=== PATIENT | male | born 1970 | race Caucasian/White ===

== ENCOUNTER 2017-11-04 12:43 | Inpatient (IN) | payer BC ==
[2017-11-04] MEDS ORDERED: HYDROmorphONE 2 MG/ML SYG IM (13:01)
[2017-11-04] MEDS: HYDROmorphONE 0.5 MG/0.5 ML SYG IV ×2 (13:23→15:10)
[2017-11-04] MEDS: HYDROmorphONE 0.5 MG/0.5 ML SYG IM (13:23)
[2017-11-04 13:39] LABS: ADD MAN DIFF? NO
[2017-11-04 13:42] LABS: BASOPHILS % 0.2 % (0.0-2.0); EOSINOPHILS % 0.2 % (0.0-7.0); HEMATOCRIT 39.6 % (42.0-52.0); HEMOGLOBIN 13.6 g/dl (14.0-18.0); LYMPHOCYTES # 1.5 10^3/ul (0.8-2.9); LYMPHOCYTES % 10.5 % (15.0-51.0); MEAN CORPUSCULAR HEMOGLOBIN 28.1 pg (29.0-33.0); MEAN CORPUSCULAR HGB CONC 34.3 g/dl (32.0-37.0); MEAN CORPUSCULAR VOLUME 81.8 fl (82.0-101.0); MEAN PLATELET VOLUME 10.2 fl (7.4-10.4); MONOCYTES % 7.3 % (0.0-11.0); NEUTROPHIL # 11.5 10^3/ul (1.6-7.5); NEUTROPHILS % 81.3 % (39.0-77.0); PLATELET COUNT 449 10^3/UL (140-415); RED BLOOD COUNT 4.84 10^6/ul (4.70-6.10); RED CELL DISTRIBUTION WIDTH 12.2 % (11.5-14.5)
[2017-11-04 13:42] LABS: WHITE BLOOD COUNT 14.1 10^3/ul (4.8-10.8)
[2017-11-04 14:10] LABS: ANION GAP 16 (8-16); BLOOD UREA NITROGEN 18 mg/dl (7-20); CALCIUM 9.4 mg/dl (8.4-10.2); CARBON DIOXIDE 25 mmol/L (21-31); CHLORIDE 102 mmol/L (97-110); CREATININE 0.64 mg/dl (0.61-1.24); GLUCOSE 104 mg/dl (70-220); POTASSIUM 3.9 mmol/L (3.5-5.1); SODIUM 139 mmol/L (135-144)
[2017-11-04] MEDS ORDERED: ONDANSETRON 4 MG INJ IV (18:00)
[2017-11-04] MEDS ORDERED: HYDROmorphONE 0.5 MG/0.5 ML SYG IV (18:00)
[2017-11-04] MEDS ORDERED: ACETAMINOPHEN 325 MG TAB PO (18:00)
[2017-11-04] MEDS: metFORMIN 500 MG TAB PO (18:31)
[2017-11-04] MEDS: HYDROmorphONE 1 MG/ML SYG IV ×2 (18:32→22:43)
[2017-11-04] MEDS: NICOTINE (21 MG/24 HR) PATCH TRANSDERM (18:48)
[2017-11-04] MEDS: INSULIN ASPART [NOVOLOG] 3 ML PEN SC ×2 (18:49→20:22)
[2017-11-04] MEDS: FAMOTIDINE 20 MG TAB PO (20:12)
[2017-11-04] MEDS: INSULIN GLARGINE [LANtus] 3 ML PEN SC (20:21)
[2017-11-05] MEDS: ACCU-CHEK XX (02:14)
[2017-11-05] MEDS: HYDROmorphONE 1 MG/ML SYG IV ×5 (02:58→22:27)
[2017-11-05 05:14] LABS: ADD MAN DIFF? NO
[2017-11-05 05:27] LABS: BASOPHILS % 0.3 % (0.0-2.0); EOSINOPHILS # 0.1 10^3/ul (0.0-0.5); EOSINOPHILS % 1.3 % (0.0-7.0); HEMATOCRIT 38.2 % (42.0-52.0); HEMOGLOBIN 13.2 g/dl (14.0-18.0); LYMPHOCYTES # 3.3 10^3/ul (0.8-2.9); LYMPHOCYTES % 33.6 % (15.0-51.0); MEAN CORPUSCULAR HEMOGLOBIN 27.7 pg (29.0-33.0); MEAN CORPUSCULAR HGB CONC 34.6 g/dl (32.0-37.0); MEAN CORPUSCULAR VOLUME 80.3 fl (82.0-101.0); MEAN PLATELET VOLUME 10.2 fl (7.4-10.4); MONOCYTE # 0.8 10^3/ul (0.3-0.9); MONOCYTES % 7.7 % (0.0-11.0); NEUTROPHIL # 5.6 10^3/ul (1.6-7.5); NEUTROPHILS % 56.8 % (39.0-77.0); PLATELET COUNT 442 10^3/UL (140-415); RED BLOOD COUNT 4.76 10^6/ul (4.70-6.10); RED CELL DISTRIBUTION WIDTH 12.6 % (11.5-14.5)
[2017-11-05 05:27] LABS: WHITE BLOOD COUNT 9.9 10^3/ul (4.8-10.8)
[2017-11-05 05:37] LABS: ALANINE AMINOTRANSFERASE 30 IU/L (13-69); ALBUMIN/GLOBULIN RATIO 1.66; ALKALINE PHOSPHATASE 53 IU/L (42-121); ANION GAP 16 (8-16); ASPARTATE AMINO TRANSFERASE 11 IU/L (15-46); BILIRUBIN,INDIRECT 0.2 mg/dl (0-1.1); BILIRUBIN,TOTAL 0.2 mg/dl (0.2-1.3); BLOOD UREA NITROGEN 16 mg/dl (7-20); CALCIUM 9.1 mg/dl (8.4-10.2); CARBON DIOXIDE 27 mmol/L (21-31); CHLORIDE 99 mmol/L (97-110); CREATININE 0.52 mg/dl (0.61-1.24); GLUCOSE 232 mg/dl (70-220); POTASSIUM 3.8 mmol/L (3.5-5.1); SODIUM 138 mmol/L (135-144); TOTAL PROTEIN 6.4 g/dl (6.1-8.1)
[2017-11-05 07:16] LABS: HEMOGLOBIN A1C 12.3 % (0-5.9)
[2017-11-05] MEDS: FAMOTIDINE 20 MG TAB PO ×2 (08:28→20:32)
[2017-11-05] MEDS: metFORMIN 500 MG TAB PO ×3 (08:28→18:43)
[2017-11-05] MEDS: ASPIRIN 81 MG TAB PO (08:28)
[2017-11-05] MEDS: NICOTINE (21 MG/24 HR) PATCH TRANSDERM (08:29)
[2017-11-05] MEDS: INSULIN ASPART [NOVOLOG] 3 ML PEN SC ×5 (08:37→21:00)
[2017-11-05] MEDS ORDERED: GLIMEPIRIDE 2 MG TAB PO (09:00)
[2017-11-05] MEDS ORDERED: GLUCOSE GEL 15 GRAM TUBE BUCCAL (13:00)
[2017-11-05] MEDS ORDERED: GLUCAGON 1 MG INJ IM (13:00)
[2017-11-05] MEDS ORDERED: GLUCOSE GEL 15 GRAM TUBE PO ×2 (13:00)
[2017-11-05] MEDS ORDERED: DEXTROSE 50% 50 ML SYRINGE IV ×2 (13:00)
[2017-11-05] MEDS: LINAGLIPTIN 5 MG TABLET PO (15:30)
[2017-11-05] MEDS: INSULIN GLARGINE [LANtus] 3 ML PEN SC (20:37)
[2017-11-05] MEDS: OXYCODONE/ACETAMINOPHEN (5/325) TAB PO (22:00)
[2017-11-06] MEDS: ACCU-CHEK XX (02:00)
[2017-11-06] MEDS: HYDROmorphONE 1 MG/ML SYG IV ×4 (02:32→15:09)
[2017-11-06 05:25] LABS: ADD MAN DIFF? NO
[2017-11-06 05:36] LABS: BASOPHIL # 0.1 10^3/ul (0.0-0.1); BASOPHILS % 0.5 % (0.0-2.0); EOSINOPHILS # 0.1 10^3/ul (0.0-0.5); EOSINOPHILS % 1.2 % (0.0-7.0); HEMATOCRIT 40.5 % (42.0-52.0); HEMOGLOBIN 13.6 g/dl (14.0-18.0); LYMPHOCYTES % 30.8 % (15.0-51.0); MEAN CORPUSCULAR HEMOGLOBIN 27.5 pg (29.0-33.0); MEAN CORPUSCULAR HGB CONC 33.6 g/dl (32.0-37.0); MEAN PLATELET VOLUME 10.2 fl (7.4-10.4); MONOCYTE # 0.7 10^3/ul (0.3-0.9); MONOCYTES % 7.1 % (0.0-11.0); NEUTROPHIL # 5.8 10^3/ul (1.6-7.5); NEUTROPHILS % 60.1 % (39.0-77.0); PLATELET COUNT 445 10^3/UL (140-415); RED BLOOD COUNT 4.94 10^6/ul (4.70-6.10); RED CELL DISTRIBUTION WIDTH 12.7 % (11.5-14.5)
[2017-11-06 05:36] LABS: WHITE BLOOD COUNT 9.7 10^3/ul (4.8-10.8)
[2017-11-06 06:59] LABS: ANION GAP 15 (8-16); BLOOD UREA NITROGEN 19 mg/dl (7-20); CALCIUM 9.4 mg/dl (8.4-10.2); CARBON DIOXIDE 30 mmol/L (21-31); CHLORIDE 99 mmol/L (97-110); CREATININE 0.66 mg/dl (0.61-1.24); GLUCOSE 122 mg/dl (70-220); POTASSIUM 4.4 mmol/L (3.5-5.1); SODIUM 140 mmol/L (135-144)
[2017-11-06] MEDS: metFORMIN 500 MG TAB PO ×2 (07:47→18:55)
[2017-11-06] MEDS: EMPAGLIFLOZIN 10 MG TABLET PO (07:47)
[2017-11-06] MEDS: INSULIN ASPART [NOVOLOG] 3 ML PEN SC ×7 (07:48→21:00)
[2017-11-06] MEDS: NICOTINE (21 MG/24 HR) PATCH TRANSDERM (08:38)
[2017-11-06] MEDS: LINAGLIPTIN 5 MG TABLET PO (08:38)
[2017-11-06] MEDS: FAMOTIDINE 20 MG TAB PO (08:38)
[2017-11-06] MEDS: ASPIRIN 81 MG TAB PO (08:38)
[2017-11-06] MEDS: OXYCODONE/ACETAMINOPHEN (5/325) TAB PO (08:44)
[2017-11-06] MEDS: D5W-0.45 NACL + KCL 20 MEQ 1,000 ML IV (14:04)
[2017-11-06] MEDS ORDERED: ONDANSETRON 4 MG INJ (18:58)
[2017-11-06] MEDS ORDERED: PROPOFOL 20 ML (18:58)
[2017-11-06] MEDS ORDERED: MIDAZOLAM 1 MG/ML 2 ML INJ (18:58)
[2017-11-06] MEDS ORDERED: ROPIVACAINE 0.5 % 30 ML VIAL (18:58)
[2017-11-06] MEDS ORDERED: ROCURONIUM 50 MG INJ ×3 (18:58→20:40)
[2017-11-06] MEDS ORDERED: METOCLOPRAMIDE 10 MG INJ (19:01)
[2017-11-06] MEDS: GELATIN SIZE 100 SPONGE (19:06)
[2017-11-06] MEDS: CEFAZOLIN 1 GM INJ (19:06)
[2017-11-06] MEDS: THROMBIN 5000 UNIT VIAL (19:06)
[2017-11-06] MEDS: HEPARIN 1000 UNITS/ML 10 ML INJ (19:06)
[2017-11-06] MEDS ORDERED: HYDROmorphONE 2 MG/ML SYG (19:32)
[2017-11-06] MEDS ORDERED: PHENYLephrine (100 MCG/ML) 10ML SYG (19:38)
[2017-11-06] MEDS ORDERED: NEOSTIGMINE 3 MG/3 ML SYRINGE (21:38)
[2017-11-06] MEDS: INSULIN GLARGINE [LANtus] 3 ML PEN SC (23:30)
[2017-11-06] MEDS: NS + KCL 20 MEQ 1,000 ML IV (23:55)
[2017-11-07] MEDS: ZOLPIDEM 5 MG TAB PO (00:34)
[2017-11-07] MEDS: FAMOTIDINE 20 MG TAB PO ×3 (00:37→20:09)
[2017-11-07] MEDS: ACCU-CHEK XX (02:26)
[2017-11-07 05:52] LABS: ADD MAN DIFF? NO
[2017-11-07 06:00] LABS: BASOPHILS % 0.1 % (0.0-2.0); EOSINOPHILS # 0.1 10^3/ul (0.0-0.5); EOSINOPHILS % 0.6 % (0.0-7.0); HEMATOCRIT 36.4 % (42.0-52.0); HEMOGLOBIN 12.4 g/dl (14.0-18.0); LYMPHOCYTES # 2.2 10^3/ul (0.8-2.9); LYMPHOCYTES % 15.2 % (15.0-51.0); MEAN CORPUSCULAR HEMOGLOBIN 27.8 pg (29.0-33.0); MEAN CORPUSCULAR HGB CONC 34.1 g/dl (32.0-37.0); MEAN CORPUSCULAR VOLUME 81.6 fl (82.0-101.0); MEAN PLATELET VOLUME 10.2 fl (7.4-10.4); MONOCYTES % 7.1 % (0.0-11.0); NEUTROPHIL # 11.1 10^3/ul (1.6-7.5); NEUTROPHILS % 76.7 % (39.0-77.0); PLATELET COUNT 435 10^3/UL (140-415); RED BLOOD COUNT 4.46 10^6/ul (4.70-6.10); RED CELL DISTRIBUTION WIDTH 12.3 % (11.5-14.5)
[2017-11-07 06:00] LABS: WHITE BLOOD COUNT 14.5 10^3/ul (4.8-10.8)
[2017-11-07 06:14] LABS: ANION GAP 14 (8-16); BLOOD UREA NITROGEN 16 mg/dl (7-20); CALCIUM 8.9 mg/dl (8.4-10.2); CARBON DIOXIDE 23 mmol/L (21-31); CHLORIDE 105 mmol/L (97-110); CREATININE 0.53 mg/dl (0.61-1.24); GLUCOSE 97 mg/dl (70-220); SODIUM 138 mmol/L (135-144)
[2017-11-07] MEDS: INSULIN ASPART [NOVOLOG] 3 ML PEN SC ×7 (07:35→20:34)
[2017-11-07] MEDS: OXYCODONE/ACETAMINOPHEN (5/325) TAB PO ×3 (08:12→20:14)
[2017-11-07] MEDS: NICOTINE (21 MG/24 HR) PATCH TRANSDERM (08:13)
[2017-11-07] MEDS: ASPIRIN 81 MG TAB PO (08:13)
[2017-11-07] MEDS: LINAGLIPTIN 5 MG TABLET PO (08:14)
[2017-11-07] MEDS: metFORMIN 500 MG TAB PO ×2 (08:14→17:52)
[2017-11-07] MEDS: EMPAGLIFLOZIN 10 MG TABLET PO (08:14)
[2017-11-07] MEDS: NS + KCL 20 MEQ 1,000 ML IV ×2 (09:26→17:51)
[2017-11-07] MEDS: HYDROmorphONE 1 MG/ML SYG IV ×3 (14:15→21:07)
[2017-11-07] MEDS: INSULIN GLARGINE [LANtus] 3 ML PEN SC (20:17)
[2017-11-08] MEDS: HYDROmorphONE 1 MG/ML SYG IV ×8 (00:10→22:20)
[2017-11-08] MEDS: ZOLPIDEM 5 MG TAB PO ×2 (00:10→22:18)
[2017-11-08] MEDS: ACCU-CHEK XX (01:32)
[2017-11-08] MEDS: NS + KCL 20 MEQ 1,000 ML IV ×2 (03:00→05:59)
[2017-11-08] MEDS: OXYCODONE/ACETAMINOPHEN (5/325) TAB PO ×2 (06:03→12:40)
[2017-11-08 06:17] LABS: ADD MAN DIFF? NO
[2017-11-08 06:37] LABS: WHITE BLOOD COUNT 11.4 10^3/ul (4.8-10.8)
[2017-11-08 06:37] LABS: BASOPHILS % 0.3 % (0.0-2.0); EOSINOPHILS # 0.2 10^3/ul (0.0-0.5); EOSINOPHILS % 1.8 % (0.0-7.0); HEMATOCRIT 33.1 % (42.0-52.0); HEMOGLOBIN 11.3 g/dl (14.0-18.0); LYMPHOCYTES # 2.6 10^3/ul (0.8-2.9); LYMPHOCYTES % 23.2 % (15.0-51.0); MEAN CORPUSCULAR HGB CONC 34.1 g/dl (32.0-37.0); MEAN CORPUSCULAR VOLUME 82.1 fl (82.0-101.0); MEAN PLATELET VOLUME 10.2 fl (7.4-10.4); MONOCYTE # 1.3 10^3/ul (0.3-0.9); NEUTROPHIL # 7.3 10^3/ul (1.6-7.5); NEUTROPHILS % 63.4 % (39.0-77.0); PLATELET COUNT 386 10^3/UL (140-415); RED BLOOD COUNT 4.03 10^6/ul (4.70-6.10); RED CELL DISTRIBUTION WIDTH 12.5 % (11.5-14.5)
[2017-11-08] MEDS ORDERED: ROCURONIUM 50 MG INJ (07:00)
[2017-11-08] MEDS ORDERED: METOCLOPRAMIDE 10 MG INJ (07:00)
[2017-11-08] MEDS ORDERED: DEXAMETHASONE 4 MG/ML 1 ML INJ (07:00)
[2017-11-08] MEDS ORDERED: CEFAZOLIN 1 GM INJ (07:00)
[2017-11-08 07:07] LABS: ANION GAP 17 (8-16); BLOOD UREA NITROGEN 10 mg/dl (7-20); CALCIUM 8.6 mg/dl (8.4-10.2); CARBON DIOXIDE 24 mmol/L (21-31); CHLORIDE 101 mmol/L (97-110); CREATININE 0.48 mg/dl (0.61-1.24); GLUCOSE 85 mg/dl (70-220); POTASSIUM 3.9 mmol/L (3.5-5.1); SODIUM 138 mmol/L (135-144)
[2017-11-08] MEDS: INSULIN ASPART [NOVOLOG] 3 ML PEN SC ×7 (07:35→21:00)
[2017-11-08] MEDS: LINAGLIPTIN 5 MG TABLET PO (08:00)
[2017-11-08] MEDS: metFORMIN 500 MG TAB PO ×2 (08:00→18:35)
[2017-11-08] MEDS: FAMOTIDINE 20 MG TAB PO ×2 (08:00→21:45)
[2017-11-08] MEDS: NICOTINE (21 MG/24 HR) PATCH TRANSDERM (08:01)
[2017-11-08] MEDS: EMPAGLIFLOZIN 10 MG TABLET PO (08:01)
[2017-11-08] MEDS: ASPIRIN 81 MG TAB PO (09:00)
[2017-11-08] MEDS: HYDROCODONE/APAP (10/325) TAB PO (09:41)
[2017-11-08] MEDS ORDERED: FENTAnyl 50 MCG/ML VIAL (16:11)
[2017-11-08] MEDS ORDERED: MIDAZOLAM 1 MG/ML 2 ML INJ (16:11)
[2017-11-08] MEDS ORDERED: SUCCINYLCHOLINE CHLORIDE 100 MG/5 ML SYG IV (16:11)
[2017-11-08] MEDS ORDERED: LIDOCAINE 2% (SDV) 5 ML INJ (16:13)
[2017-11-08] MEDS ORDERED: ETOMIDATE 20 MG INJ (16:13)
[2017-11-08] MEDS ORDERED: SUGAMMADEX SODIUM 200 MG/2 ML VIAL IV (17:24)
[2017-11-08] MEDS ORDERED: ONDANSETRON 4 MG INJ (17:25)
[2017-11-08] MEDS ORDERED: METOPROLOL 5 MG INJ (18:00)
[2017-11-08] MEDS: GELATIN SIZE 100 SPONGE (18:11)
[2017-11-08] MEDS: POLYMYXIN/BACITRACIN 1L IRRIG (18:13)
[2017-11-08] MEDS: THROMBIN 5000 UNIT VIAL (18:13)
[2017-11-08] MEDS: ROPIVACAINE 0.5 % 30 ML VIAL (18:14)
[2017-11-08] MEDS: INSULIN GLARGINE [LANtus] 3 ML PEN SC (20:11)
[2017-11-09] MEDS: ACCU-CHEK XX ×2 (02:00→22:49)
[2017-11-09] MEDS: HYDROmorphONE 1 MG/ML SYG IV ×5 (02:24→21:33)
[2017-11-09] MEDS: NS + KCL 20 MEQ 1,000 ML IV (04:45)
[2017-11-09 05:35] LABS: ADD MAN DIFF? NO
[2017-11-09 05:44] LABS: BASOPHILS % 0.1 % (0.0-2.0); EOSINOPHILS % 0.1 % (0.0-7.0); HEMATOCRIT 33.8 % (42.0-52.0); HEMOGLOBIN 11.3 g/dl (14.0-18.0); LYMPHOCYTES # 1.9 10^3/ul (0.8-2.9); LYMPHOCYTES % 17.6 % (15.0-51.0); MEAN CORPUSCULAR HEMOGLOBIN 27.7 pg (29.0-33.0); MEAN CORPUSCULAR HGB CONC 33.4 g/dl (32.0-37.0); MEAN CORPUSCULAR VOLUME 82.8 fl (82.0-101.0); MEAN PLATELET VOLUME 10.5 fl (7.4-10.4); MONOCYTE # 0.9 10^3/ul (0.3-0.9); MONOCYTES % 8.6 % (0.0-11.0); NEUTROPHILS % 72.9 % (39.0-77.0); PLATELET COUNT 407 10^3/UL (140-415); RED BLOOD COUNT 4.08 10^6/ul (4.70-6.10); RED CELL DISTRIBUTION WIDTH 12.3 % (11.5-14.5)
[2017-11-09 05:44] LABS: WHITE BLOOD COUNT 10.9 10^3/ul (4.8-10.8)
[2017-11-09 06:06] LABS: ANION GAP 15 (8-16); BLOOD UREA NITROGEN 8 mg/dl (7-20); CALCIUM 8.9 mg/dl (8.4-10.2); CARBON DIOXIDE 26 mmol/L (21-31); CHLORIDE 99 mmol/L (97-110); CREATININE 0.51 mg/dl (0.61-1.24); GLUCOSE 144 mg/dl (70-220); POTASSIUM 4.1 mmol/L (3.5-5.1); SODIUM 136 mmol/L (135-144)
[2017-11-09] MEDS: INSULIN ASPART [NOVOLOG] 3 ML PEN SC ×7 (08:59→21:00)
[2017-11-09] MEDS: EMPAGLIFLOZIN 10 MG TABLET PO (09:01)
[2017-11-09] MEDS: HYDROCODONE/APAP (10/325) TAB PO ×3 (09:01→21:33)
[2017-11-09] MEDS: NICOTINE (21 MG/24 HR) PATCH TRANSDERM (09:01)
[2017-11-09] MEDS: FAMOTIDINE 20 MG TAB PO ×2 (09:01→20:54)
[2017-11-09] MEDS: ASPIRIN 81 MG TAB PO (09:01)
[2017-11-09] MEDS: metFORMIN 500 MG TAB PO ×2 (09:02→17:10)
[2017-11-09] MEDS: LINAGLIPTIN 5 MG TABLET PO (09:02)
[2017-11-09] MEDS: OXYCODONE/ACETAMINOPHEN (5/325) TAB PO (14:30)
[2017-11-09] MEDS: INSULIN GLARGINE [LANtus] 3 ML PEN SC (20:57)
[2017-11-10] MEDS: ZOLPIDEM 5 MG TAB PO ×2 (00:24→21:37)
[2017-11-10] MEDS: HYDROmorphONE 1 MG/ML SYG IV ×6 (00:24→21:46)
[2017-11-10] MEDS: HYDROCODONE/APAP (10/325) TAB PO ×2 (01:56→16:59)
[2017-11-10] MEDS: OXYCODONE/ACETAMINOPHEN (5/325) TAB PO (02:57)
[2017-11-10] MEDS: LORAZEPAM 2 MG INJ IV ×2 (02:57→23:57)
[2017-11-10 04:59] LABS: ADD MAN DIFF? NO
[2017-11-10 05:06] LABS: WHITE BLOOD COUNT 11.5 10^3/ul (4.8-10.8)
[2017-11-10 05:06] LABS: BASOPHILS % 0.3 % (0.0-2.0); EOSINOPHILS # 0.1 10^3/ul (0.0-0.5); EOSINOPHILS % 0.8 % (0.0-7.0); HEMATOCRIT 30.2 % (42.0-52.0); HEMOGLOBIN 10.1 g/dl (14.0-18.0); LYMPHOCYTES # 2.8 10^3/ul (0.8-2.9); LYMPHOCYTES % 24.5 % (15.0-51.0); MEAN CORPUSCULAR HGB CONC 33.4 g/dl (32.0-37.0); MEAN CORPUSCULAR VOLUME 83.7 fl (82.0-101.0); MEAN PLATELET VOLUME 10.4 fl (7.4-10.4); MONOCYTE # 1.1 10^3/ul (0.3-0.9); MONOCYTES % 9.8 % (0.0-11.0); NEUTROPHIL # 7.4 10^3/ul (1.6-7.5); NEUTROPHILS % 64.2 % (39.0-77.0); PLATELET COUNT 375 10^3/UL (140-415); RED BLOOD COUNT 3.61 10^6/ul (4.70-6.10); RED CELL DISTRIBUTION WIDTH 12.4 % (11.5-14.5)
[2017-11-10 05:35] LABS: ANION GAP 15 (8-16); BLOOD UREA NITROGEN 16 mg/dl (7-20); CALCIUM 8.6 mg/dl (8.4-10.2); CARBON DIOXIDE 26 mmol/L (21-31); CHLORIDE 102 mmol/L (97-110); CREATININE 0.65 mg/dl (0.61-1.24); GLUCOSE 123 mg/dl (70-220); POTASSIUM 3.9 mmol/L (3.5-5.1); SODIUM 139 mmol/L (135-144)
[2017-11-10] MEDS: INSULIN ASPART [NOVOLOG] 3 ML PEN SC ×8 (09:05→21:40)
[2017-11-10] MEDS: FAMOTIDINE 20 MG TAB PO ×2 (09:47→21:37)
[2017-11-10] MEDS: metFORMIN 500 MG TAB PO ×2 (09:47→17:36)
[2017-11-10] MEDS: ASPIRIN 81 MG TAB PO (09:47)
[2017-11-10] MEDS: NICOTINE (21 MG/24 HR) PATCH TRANSDERM (09:48)
[2017-11-10] MEDS: EMPAGLIFLOZIN 10 MG TABLET PO (09:48)
[2017-11-10] MEDS: LINAGLIPTIN 5 MG TABLET PO (09:48)
[2017-11-10] MEDS: INSULIN GLARGINE [LANtus] 3 ML PEN SC (21:42)
[2017-11-11] MEDS: ACCU-CHEK XX (02:00)
[2017-11-11] MEDS: HYDROmorphONE 1 MG/ML SYG IV ×4 (03:39→12:54)
[2017-11-11] MEDS: HYDROCODONE/APAP (10/325) TAB PO (08:39)
[2017-11-11] MEDS: LINAGLIPTIN 5 MG TABLET PO (08:40)
[2017-11-11] MEDS: ASPIRIN 81 MG TAB PO (08:40)
[2017-11-11] MEDS: metFORMIN 500 MG TAB PO (08:40)
[2017-11-11] MEDS: FAMOTIDINE 20 MG TAB PO (08:40)
[2017-11-11] MEDS: EMPAGLIFLOZIN 10 MG TABLET PO (08:40)
[2017-11-11] MEDS: NICOTINE (21 MG/24 HR) PATCH TRANSDERM (08:41)
[2017-11-11] MEDS: INSULIN ASPART [NOVOLOG] 3 ML PEN SC ×4 (08:48→12:56)
== END 2017-11-11 13:55 | disposition home or self-care (01) | DRG 453 ==
LOC: MS1 11-09 16:30 → ICU 11-06 22:04 → E/R 12:43 → MS1 14:41
PROC: 0SG30A0 Fusion of Lumbosacral Joint with Interbody Fusion Device, Anterior Approach, Anterior Column, Open Approach (ICD-10-PCS; principal; 2017-11-06 17:00)
PROC: 0SB40ZZ Excision of Lumbosacral Disc, Open Approach (ICD-10-PCS; 2017-11-06 17:00)
PROC: 0SG30Z1 (ICD-10-PCS; 2017-11-06 19:06)
PROC: 06QD0ZZ Repair Left Common Iliac Vein, Open Approach (ICD-10-PCS; 2017-11-06 19:06)
DX: M51.17 Intervertebral disc disorders with radiculopathy, lumbosacral region (principal); S35.515A Injury of left iliac vein, initial encounter; M96.820 Accidental puncture and laceration of a musculoskeletal structure during a musculoskeletal system procedure; E78.2 Mixed hyperlipidemia; F17.200 Nicotine dependence, unspecified, uncomplicated; E11.65 Type 2 diabetes mellitus with hyperglycemia; Z72.0 Tobacco use; Y92.234 Operating room of hospital as the place of occurrence of the external cause
CPT/HCPCS: 36415; 71045; 72100; 72114; 72131; 80048; 80053; 82962; 83036; 85025; 86850; 86900; 86901; 86920; 87040; 87081; 88304; 93005; 96374; 96376; 97116; 97162; 97530; 99285-25

== ENCOUNTER 2017-11-16 04:31 | Emergency (ER) | payer BC | END 2017-11-16 05:21 | disposition home or self-care (01) | LOC: FTE 04:31 | DX: F41.9 Anxiety disorder, unspecified (principal); F17.210 Nicotine dependence, cigarettes, uncomplicated; Z79.4 Long term (current) use of insulin; Z79.82 Long term (current) use of aspirin; Z98.890 Other specified postprocedural states | CPT/HCPCS: 99283 ==

== ENCOUNTER 2017-11-24 14:20 | Emergency (ER) | payer BC | END 2017-11-24 15:18 | disposition home or self-care (01) | LOC: FTE 14:20 | DX: L76.34 Postprocedural seroma of skin and subcutaneous tissue following other procedure (principal); E11.9 Type 2 diabetes mellitus without complications; F17.210 Nicotine dependence, cigarettes, uncomplicated; Z79.4 Long term (current) use of insulin; Z79.82 Long term (current) use of aspirin | CPT/HCPCS: 99283; Z7502 ==

== ENCOUNTER 2018-01-15 16:31 | Emergency (ER) | payer SELFPAY, BC | END 2018-01-15 18:35 | disposition left against medical advice (07) | LOC: E/R 16:31 | DX: Z53.21 Procedure and treatment not carried out due to patient leaving prior to being seen by health care provider (principal) ==